=== PATIENT | female | born 2000 ===

== ENCOUNTER 2022-12-02 21:41 | Outpatient (REF) | payer OTHER, SELFPAY ==
[2022-12-02 21:10] LABS: Abs Immature Grans 0.02 10^3/uL (0.0-0.06); Absolute Basophil Count 0.05 10^3/uL (0.0-0.2); Absolute Lymphocyte Count 2.39 10^3/uL (1.2-3.4); Absolute Monocyte Count 0.56 10^3/uL (0.1-0.8); Absolute Neutrophil Count 5.26 10^3/uL (1.2-6.7); Basophils % 0.6; Eosinophils % 2.4; HCT 42.6 % (36.0-46.0); HGB 14.5 g/dL (11.2-15.7); Immature Grans % 0.2; Lymphocytes % 28.2; MCH 30.7 pg (27.0-33.0); MCV 90 fL (80-95); MPV 10.8 fL (8.0-11.0); Monocytes % 6.6; Platelet Count 237 10^3/uL (130-400); RBC 4.72 10^6/uL (3.93-5.22); RDW-SD 39.8 fL; WBC 8.48 10^3/uL (4.4-10.8)
[2022-12-02 21:11] LABS: Bilirubin Negative (Negative); Blood Negative (Negative); Clarity Clear (Clear); Glucose Negative (Negative); Ketones Negative (Negative); Leukocyte Esterase Negative (Negative); Nitrite Negative (Negative); Urobilinogen 0.2 mg/dL (Up to 0.2); pH 7.5 (5-8)
[2022-12-02 21:26] LABS: ALT 21 U/L (14-59); AST 10 U/L (15-37); Albumin 4.3 g/dL (3.4-5.0); Alkaline Phosphatase 83 U/L (46-116); BUN 14 mg/dL (7-18); Bilirubin, Total 0.1 mg/dL (0.2-1.0); CREATININE 0.7 mg/dL (0.55-1.02); Calcium 9.6 mg/dL (8.5-10.1); Chloride 100 mmol/L (98-107); Glucose 92 mg/dL (74-106); Potassium 4.6 mmol/L (3.5-5.1); Sodium 137 mmol/L (136-145); TSH (W/Ref FT4) 0.73 uIU/mL (0.36-3.74); Total Protein 7.5 g/dL (6.4-8.2)
== END 2022-12-02 21:42 | disposition home or self-care (01) ==
LOC: LBN 21:41
PROVIDERS: Visit Provider Physician Assistant Medical
DX: R82.998 Other abnormal findings in urine (principal); R07.9 Chest pain, unspecified
CPT/HCPCS: 80053; 81003; 84443; 85025